=== PATIENT | female | born 1985 | race African-American/Black ===

== ENCOUNTER 2016-05-05 12:50 | Emergency (ER) | payer OTHER ==
[~2016-05-05] VITALS: Ht 175.3 cm; Wt 140.3 kg
[2016-05-05 13:01] VITALS: TEMP 36.4; Ht 175.3 cm; Wt 140.3 kg
[2016-05-05] MEDS ORDERED: SODIUM CHLORIDE 0.9% 1000ML 500 ML IV STA (13:25)
[2016-05-05] MEDS ORDERED: SODIUM CHLORIDE 0.9% 1000ML 1,000 ML IV STA (13:25)
[2016-05-05] MEDS ORDERED: KETOROLAC TROMETHAMINE 30 MG/ML VIAL IV STA (13:25)
--- NOTE | 2016-05-05 13:35 | EMERGENCY ROOM VISIT NOTE ---
History Report prepared by Rafael: Heather Roberts Under the Supervision of: Dr. Juarez Varela M.D. First contact with patient: 13:20 Chief Complaint: RESPIRATORY PROBLEMS Stated Complaint: RIGHT UPPER BACK PAIN, RESPIRATORY PAIN Nursing Triage Summary: having pain in right upper back when taking a deep breath. feeling slightly sob. no other symptoms at this time. pt is a smoker History of Present Illness The patient is a 31 year old female who presents to the Emergency Room with complaints of persistent pain in the right side of her chest for the past 2 days. She rates the pain as a 7/10 and reports the pain is worsened by deep inspiration. She was unable to sleep last night because of her discomfort. She denies any history of asthma or lung problems but notes she is a current smoker. She has tried taking Ibuprofen, but it has not provided much relief. She complains of feeling mildly short of breath as well. The patient denies any personal or family history of PE's or DVT's. She denies any recent travel, fall or injuries. Her boyfriend notes she has been working out recently and may have pulled a muscle. The patient also denies noticing any rashes or abnormalities to her skin. Source of History: patient Onset: 2 days FUR BLOWER Position: chest (right side of chest) Symptom Intensity: Timing: other (persistent) Modifying Factors (Worsening): breathing (deep inspiration) Modifying Factors (Relieving): ibuprofen Associated Symptoms: + SOB, No rash Review of Systems See HPI for pertinent positives & negatives. A total of 10 systems reviewed and were otherwise negative. Past Medical & Surgical Medical Problems: (1) Umbilical hernia Surgical Problems: (1) S/P section Family History Diabetes mellitus Hypertension Social History Smoking Status: Current Every Day Smoker Alcohol Use: none Drug Use: none Marital Status: in relationship Housing Status: lives with family Occupation Status: employed Current/Historical Medications Scheduled Multivitamin (Multivitamin), 1 TAB PO DAILY Scheduled PRN Oxycodone Ir (Roxicodone Ir), 1-2 TAB PO Q4H PRN for Pain Allergies Coded Allergies: Ioversol (Verified Allergy, Intermediate, HIVES, 05/05/16) Quinolones (Verified Allergy, Unknown, 05/05/16) Sulfa Drugs (Verified Allergy, Unknown, 05/05/16) Sulfamethoxazole (Verified Allergy, Unknown, 05/05/16) Trimethoprim (Verified Allergy, Unknown, 05/05/16) Metronidazole (Verified Adverse Reaction, Mild, GI UPSET, 05/05/16) GI UPSET Physical Exam Vital Signs Date Time Temp Pulse Resp B/P Pulse Ox O2 Delivery O2 Flow Rate FiO2 05/05/16 15:00 68 16 96/52 100 Room Air 05/05/16 14:23 66 05/05/16 13:01 36.4 83 18 123/82 99 Room Air Physical Exam GENERAL: Patient is in no acute distress. HEENT: No acute trauma, normocephalic atraumatic, mucous membranes moist, no nasal congestion, no scleral icterus. NECK: No stridor, no adenopathy, no meningismus, trachea is midline. LUNGS: Clear to auscultation bilaterally, no wheeze, no rhonchi, breath sounds equal. HEART: Without murmurs gallops or rubs, regular rate and rhythm. CHEST: Tender along the right lateral mid chest wall, no rash. ABDOMEN: Soft, nontender, bowel sounds positive, no hernias, no peritonitis. EXTREMITIES: No cyanosis or edema, full range of motion of all the joints without pain or difficulty, no signs for acute trauma. NEUROLOGIC: Oriented x 3, no acute motor or sensory deficits, no focal weakness. SKIN: No rash, no jaundice, no diaphoresis. Medical Decision & Procedures ER Provider Diagnostic Interpretation: This X-Ray was reviewed and interpreted by myself and the radiologist. CHEST ONE VIEW PORTABLE IMPRESSION: No active disease in the chest. Electronically signed by: Jericho Louise M.D. 05/05/2016 1:35 PM Laboratory Results 05/05/16 14:00 05/05/16 14:00 Test 05/05/16 14:00 05/05/16 14:10 Red Blood Count 4.44 M/uL (4.2-5.4) Mean Corpuscular Volume 89.2 fL (80-100) Mean Corpuscular Hemoglobin 29.5 pg (25-34) Mean Corpuscular Hemoglobin Concent 33.1 g/dl (32-36) RDW Standard Deviation 44.1 fL (36.4-46.3) RDW Coefficient of Variation 13.5 % (11.5-14.5) Mean Platelet Volume 10.2 fL (7.4-10.4) Anion Gap 8.0 mmol/L (3-11) Est Creatinine Clear Calc Drug Dose 183.5 ml/min Estimated GFR () 134.5 Estimated GFR (Non- 116.1 BUN/Creatinine Ratio 19.0 (10-20) Calcium Level 8.8 mg/dl (8.5-10.1) Total Bilirubin 0.8 mg/dl (0.2-1) Aspartate Amino Transf (AST/SGOT) 8 U/L (15-37) Alanine Aminotransferase (ALT/SGPT) 17 U/L (12-78) Alkaline Phosphatase 50 U/L (45-117) Total Protein 6.5 gm/dl (6.4-8.2) Albumin 3.2 gm/dl (3.4-5.0) Globulin 3.3 gm/dl (2.5-4.0) Albumin/Globulin Ratio 1.0 (0.9-2) Bedside D-Dimer 405 ng/mlFEU (0-450) Bedside Troponin I 0.000 ng/ml (0-0.045) Laboratory results reviewed by me. Medications Administered Medications (Trade) Dose Ordered Sig/[facility] Route Start Time Stop Time Status Last Admin Dose Admin Sodium Chloride 500 ml @ 999 mls/hr Q31M STAT IV 05/05/16 13:25 05/05/16 13:55 DC 05/05/16 14:09 999 MLS/HR Sodium Chloride (Nss 1000ml) 1,000 ml @ 200 mls/hr Q5H STAT IV 05/05/16 13:25 05/05/16 15:47 DC 05/05/16 13:25 200 MLS/HR Ketorolac Tromethamine (Toradol Inj) 30 mg NOW STAT IV 05/05/16 13:25 05/05/16 13:27 DC 05/05/16 14:09 30 MG ECG Indication: chest pain Rate (beats per minute): 61 Rhythm: normal sinus (normal sinus rhythm) Findings: no acute ischemic change, no ectopy ED Course 1321: The patient was evaluated in room C5. A complete history and physical exam was performed. 1325: Toradol 30 mg IV, NSS 1000 ml @ 200 mls/hr IV, NSS 500 ml @ 999 mls/hr IV. 1500: I reevaluated the patient. She is feeling much better. I discussed her results and discharge instructions and she verbalized complete understanding and agreement. Medical Decision The differential diagnoses considered include: Musculoskeletal pain, aortic dissection, PE, PA, pneumothorax, pneumonia and liver disease. There is no leukocytosis or concerning anemia. No significant electrolyte abnormality, kidney failure or hepatitis. Chest x-ray shows no pneumonia, mediastinal widening or pneumothorax. EKG shows a sinus rhythm, no acute ischemia. Cardiac enzyme testing 1 is not suggestive of acute cardiac injury. D-dimer testing is negative. With a negative d-dimer and my low suspicion for PE, I will stop the workup for this diagnosis. The patient presents with right lateral chest pain. The pain is reproducible and likely musculoskeletal. Patient's workup is benign. She is being discharged home. [place] Drug Monitoring Program Search Results: no issues identified Impression Primary Impression: Right-sided chest pain Scribe Attestation The scribe's documentation has been prepared under my direction and personally reviewed by me in its entirety. I confirm that the note above accurately reflects all work, treatment, procedures, and medical decision making performed by me. Departure Information Dispostion Home / Self-Care Prescriptions Oxycodone Ir (Roxicodone Ir) 5 Mg Tab 1-2 TAB PO Q4H Y for Pain, #10 TAB Prov: Juarez Varela M.D. 05/05/16 Referrals Vitaly Dangelo M.D. (PCP) Patient Instructions My [facility] Additional Instructions heat will help rest avoid exercise until feeling better motrin 600 mg 3x per day for 5 days oxy ir 1 tab every 4 hours for severe pain as needed return if worsening or have fever
--- NOTE | 2016-05-05 13:38 | DIAGNOSTIC IMAGING REPORT ---
CHEST ONE VIEW PORTABLE CLINICAL HISTORY: Atypical chest pain COMPARISON STUDY: 01/25/2016 FINDINGS: The cardiac and mediastinal contours are normal. There is no evidence of focal pulmonary consolidation. There is no evidence of failure. No pleural effusions are visualized.[ IMPRESSION: No active disease in the chest. Electronically signed by: Jericho Louise M.D. 05/05/2016 1:35 PM Dictated Date/Time: 05/05/2016 1:35 PM
[2016-05-05 14:23] LABS: HEMATOCRIT 39.6 % (37-47); MEAN CELL VOLUME 89.2 fL (80-100); MEAN CORPUSCULAR HEMOGLOBIN 29.5 pg (25-34); MEAN CORPUSCULAR HGB CONC 33.1 g/dl (32-36); MEAN PLATELET VOLUME 10.2 fL (7.4-10.4); PLATELET COUNT 252 K/uL (130-400); RED BLOOD COUNT 4.44 M/uL (4.2-5.4); WHITE BLOOD COUNT 7.08 K/uL (4.8-10.8)
[2016-05-05] MEDS ORDERED: MULT-506 PO (14:40)
[2016-05-05 14:42] LABS: CALCIUM 8.8 mg/dl (8.5-10.1); CREATININE 0.66 mg/dl (0.60-1.20); POTASSIUM 3.8 mmol/L (3.5-5.1)
[2016-05-05 15:00] VITALS: BP 96/52; PULSE 68; O2SAT 100
[2016-05-05] MEDS ORDERED: OXYC1TAB3 PO (15:13)
== END 2016-05-05 15:24 | disposition home or self-care (01) ==
LOC: C.EDB 12:52 → C.EDC 15:24
DX: R07.89 Other chest pain (principal); F17.200 Nicotine dependence, unspecified, uncomplicated

== ENCOUNTER → 2016-05-25 | Outpatient (CLI) | payer OTHER ==
[~2016-05-25] MED LIST: BUSP1TAB46 PO; CYAN500T PO; ERGO500037 PO; MULT-506 PO; OXYC1TAB3 PO; PROM25TA9 PO
[2016-05-28 21:14] LABS: CHLAMYDIA TRACH RNA*** NOT DETECTED (NOT DETECTED); GC (NEIS GONORRHOEAE)RNA** NOT DETECTED (NOT DETECTED)
== END | disposition home or self-care (01) ==
LOC: C.LABSPEC 14:31
PROVIDERS: ATTEND Obstetrics & Gynecology
DX: Z11.3 Encounter for screening for infections with a predominantly sexual mode of transmission (principal)

== ENCOUNTER → 2016-06-15 | Outpatient (CLI) | payer OTHER ==
--- NOTE | 2016-06-15 13:16 | DIAGNOSTIC IMAGING REPORT ---
CT SCAN OF THE ABDOMEN AND PELVIS WITHOUT CONTRAST CLINICAL HISTORY: Recurrent ventral hernia. Abdominal pain. COMPARISON STUDY: 01/01/2015 TECHNIQUE: CT scan of the abdomen and pelvis was performed from the lung bases to the proximal femurs. Images are reviewed in the axial, sagittal, and coronal planes. IV contrast was not administered for this examination. CT DOSE: 1429.66 mGycm FINDINGS: Lower chest: The heart is normal in size and configuration, without pericardial effusion. The lung bases and pleural spaces are clear. Liver: The unenhanced liver is normal in size, contour, and attenuation. There is no intrahepatic biliary ductal dilatation. Gallbladder: Contracted Spleen: Normal in size and attenuation. Pancreas: Unremarkable. Adrenal glands: Unremarkable. Kidneys: The unenhanced kidneys are normal in size without hydronephrosis. There is no contour deforming renal mass lesion. No renal calculi are identified. Bowel: There are no transition zones indicate bowel obstruction. There is no acute diverticulitis. There are no findings to indicate acute appendicitis. Peritoneum: There is no intraperitoneal free air or abdominal ascites. There is a right-sided paramidline fat-containing ventral hernia. The neck measures 16 mm. The hernia sac measures 39 x 35 x 53 mm. Vasculature: The abdominal aorta is normal in course and caliber. Adenopathy: None. Pelvic viscera: The bladder, and pelvic viscera are unremarkable. Skeletal structures: No destructive osseous lesions are seen. IMPRESSION: 1. No evidence of bowel obstruction. No evidence of free air 2. No acute inflammatory changes. No evidence of acute appendicitis. No evidence of acute diverticulitis 3. Right-sided fat-containing paramidline ventral hernia Electronically signed by: Jericho Louise M.D. 06/15/2016 1:14 PM Dictated Date/Time: 06/15/2016 1:10 PM
== END | disposition home or self-care (01) ==
LOC: C.CTS 12:40
PROVIDERS: ATTEND Surgery
DX: K43.2 Incisional hernia without obstruction or gangrene (principal)

== ENCOUNTER 2016-06-24 12:09 | Emergency (ER) | payer OTHER ==
[~2016-06-24] VITALS: Ht 175.3 cm; Wt 136.5 kg
[~2016-06-24 12:09] MED LIST changes: -BUSP1TAB46 PO; -CYAN500T PO; -ERGO500037 PO; -PROM25TA9 PO
[2016-06-24 12:12] VITALS: TEMP 36.4; Ht 175.3 cm; Wt 136.5 kg
[2016-06-24 13:35] LABS: URINE APPEARANCE CLEAR (CLEAR); URINE BILIRUBIN NEG (NEG); URINE COLOR YELLOW; URINE NITRITE NEG (NEG); URINE SPECIFIC GRAVITY 1.023 (1.000-1.030); UROBILINOGEN NEG (NEG)
[2016-06-24 13:47] LABS: MANUAL MICROSCOPIC REQUIRED? NO; REVIEW REQ? NO
--- NOTE | 2016-06-24 14:59 | DIAGNOSTIC IMAGING REPORT ---
ABDOMEN 2VIEW W/PA CHEST RTN CLINICAL HISTORY: abd pain nausea COMPARISON STUDY: 05/05/2016 FINDINGS: The soft tissues, psoas shadows, renal outlines and intestinal gas pattern appear normal. There is no evidence for bowel obstruction. There is no evidence for free intraperitoneal air. No abnormal abdominal calcifications are seen. A frontal view of the chest was performed and is unremarkable. IMPRESSION: Normal study. Electronically signed by: Anastacio Veloz M.D. 06/24/2016 2:58 PM Dictated Date/Time: 06/24/2016 2:58 PM
[2016-06-24] MEDS ORDERED: PROM25TA9 PO (15:13)
[2016-06-24 15:29] VITALS: BP 121/59; PULSE 71; O2SAT 100
--- NOTE | 2016-06-24 16:46 | EMERGENCY ROOM VISIT NOTE ---
History First contact with patient: 13:00 Chief Complaint: ILLNESS Stated Complaint: POSSIBLE FOOD POISONING History of Present Illness The patient is a 31 year old -[place] female who presents to the Emergency Room with complaints of nausea and mild stomach discomfort since last evening. Patient states she and her family were out having dinner last night. She had a chicken sandwich with a yogurt sauce. No one else had a chicken sandwich. She developed some nausea last night. It has persisted through today. She denies any vomiting or diarrhea. No fevers, chills, or sweats. She does have mild diffuse abdominal discomfort. Nothing specific. She also notes occasional burping and reflux type symptoms. She states her reflux smells like sulfur. She had this once before. No back pain, shortness of breath, or chest pain. No one else has similar symptoms. No treatment yet. She denies any urinary urgency or dysuria. She states there may be some frequency. No previous abdominal surgeries other than C-sections. Review of Systems REVIEW OF SYSTEM: HEENT: No dizziness, visual problems, hearing loss, or tinnitus. There is no difficulty swallowing and no oral lesions are present. PULMONARY: No cough, shortness of breath, sputum production or hemoptysis. CARDIOVASCULAR: No chest pain, palpitations, shortness of breath or peripheral edema. GASTROINTESTINAL: No diarrhea, constipation, vomiting, or abdominal pain. GENITOURINARY: No dysuria, frequency, urgency or nocturia. NEUROLOGIC: No weakness, muscle tenderness, epilepsy or history of neurological problems. MUSCULOSKELETAL: No history of joint tenderness/swelling. No history of arthritis or arthralgias. SKIN: No rashes or lesions. PSYCHIATRIC: No history of depression or mental illness. ENDOCRINE: No history of diabetes, thyroid disorders, or abnormal hair growth. Past Medical/Surgical History Medical Problems: (1) Umbilical hernia Surgical Problems: (1) S/P section Family History Diabetes mellitus Hypertension Social History Smoking Status: Current Every Day Smoker Smokeless Tobacco Use: No Alcohol Use: none Drug Use: none Marital Status: in relationship Housing Status: lives with family Occupation Status: employed Current/Historical Medications Scheduled Multivitamin (Multivitamin), 1 TAB PO DAILY Scheduled PRN Promethazine Hcl (Phenergan), 25 MG PO Q6H PRN for Nausea Allergies Coded Allergies: Ioversol (Verified Allergy, Intermediate, HIVES, 05/05/16) Quinolones (Verified Allergy, Unknown, 05/05/16) Sulfa Drugs (Verified Allergy, Unknown, 05/05/16) Sulfamethoxazole (Verified Allergy, Unknown, 05/05/16) Trimethoprim (Verified Allergy, Unknown, 05/05/16) Metronidazole (Verified Adverse Reaction, Mild, GI UPSET, 05/05/16) GI UPSET Physical Exam Vital Signs Date Time Temp Pulse Resp B/P Pulse Ox O2 Delivery O2 Flow Rate FiO2 06/24/16 15:29 71 18 121/59 100 Room Air 06/24/16 14:17 74 20 166/107 97 Room Air 06/24/16 12:12 36.4 93 20 112/67 97 Room Air Pain Rating (0-10): 4.0 Physical Exam Gen.: Well-developed, well-nourished, moderately obese -[place] female, in no acute distress. Laying on a bed. Alert and oriented. Skin:Warm and dry with good turgor. No rashes or lesions. No ecchymosis or erythema. The patient is not diaphoretic. No abrasions. Heart: Heart RRR. No MGR. Peripheral pulses are 2+. Lungs: Lungs are clear to auscultation. No crackles rhonchi or wheezing. Good air movement. The patient is able to take a deep breath. Abdomen: Abdomen was inspected, auscultated, and palpated. Obese. Bowel sounds present x 4. Soft, suprapubic discomfort to palpation. No tenderness anywhere else on the abdomen. No hepato-splenomegaly. No masses noted. No rebound, negative Gross sign. No pain over McBurney's point. No CVA tenderness. Musculoskeletal: Gross motor function of the upper and lower extremities is intact and unremarkable. Medical Decision & Procedures ER Provider Diagnostic Interpretation: (X-ray series obtained today was read by radiology as unremarkable. Significant stool is visible. Normal bowel gas pattern. Laboratory Results Test 06/24/16 13:24 Urine Color YELLOW Urine Appearance CLEAR (CLEAR) Urine pH 7.0 (4.5-7.5) Urine Specific [place] 1.023 (1.000-1.030) Urine Protein NEG (NEG) Urine Glucose (UA) NEG (NEG) Urine Ketones NEG (NEG) Urine Occult Blood NEG (NEG) Urine Nitrite NEG (NEG) Urine Bilirubin NEG (NEG) Urine Urobilinogen NEG (NEG) Urine Leukocyte Esterase NEG (NEG) Urine Test NEG (NEG) Urine is negative. UA is unremarkable. ED Course Patient was educated regarding today's findings. Conservative care measures were discussed. Acute abdominal x-ray series was obtained today. UA and urine were also obtained. These were unremarkable. Symptoms may be related to her significant stool load. I will have her use MiraLAX or prune juice to start moving her bowels. She states she did move them yesterday and it was normal, but this was before the chicken sandwich. Prescription was provided for Phenergan 25 mg to use every 6 hours as needed for nausea. She is afebrile and has no focal abdominal discomfort. I do not think further imaging studies are warranted at this time. Obviously return to the ED if symptoms should change, or follow-up with her PCP. Start a bland diet. Advance as tolerated. Tylenol or Motrin every 6 hours as needed for mild discomfort. Maintain hydration. Her significant other is also aware. Medical Decision Possibility of the urgency, UTI, kidney stone, bowel obstruction, constipation, diverticulitis, appendicitis, cholecystitis, ovarian cyst, PID, food poisoning, and viral gastroenteritis were considered. Impression Primary Impression: Constipation Additional Impression: Nausea Departure Information Dispostion Home / Self-Care Prescriptions Promethazine Hcl (Phenergan) 25 Mg Tab 25 MG PO Q6H Y for Nausea, #10 TAB Prov: Torrey Mcdermott,P.A. 06/24/16 Forms WORK / SCHOOL INSTRUCTIONS, HOME CARE DOCUMENTATION FORM, IMPORTANT VISIT INFORMATION Patient Instructions My [facility] Additional Instructions Follow-up with your PCP if symptoms persist or worsen Return to the ED for any other concerns Start MiraLAX or prune juice to help with bowel motility Phenergan 1 tablet every 6 hours as needed for nausea Maintain hydration [place] diet-advance as tolerated Problem Qualifiers Primary Impression: Constipation Constipation type: unspecified constipation type Qualified Codes: K59.00 - Constipation, unspecified
== END 2016-06-24 15:31 | disposition home or self-care (01) ==
LOC: C.EDB 12:09 → C.EDA 15:31
DX: K59.00 Constipation, unspecified (principal); R11.0 Nausea; Z98.891 History of uterine scar from previous surgery; Z83.3 Family history of diabetes mellitus; Z82.49 Family history of ischemic heart disease and other diseases of the circulatory system; F17.200 Nicotine dependence, unspecified, uncomplicated

== ENCOUNTER 2016-10-02 11:21 | Emergency (ER) | payer OTHER ==
[~2016-10-02] VITALS: Ht 175.3 cm; Wt 149.0 kg
[~2016-10-02 11:21] MED LIST changes: -OXYC1TAB3 PO; +PROM25TA9 PO
[2016-10-02 11:23] VITALS: BP 135/79; PULSE 83; TEMP 36.6; O2SAT 97; Ht 175.3 cm; Wt 149.0 kg
--- NOTE | 2016-10-02 11:56 | DIAGNOSTIC IMAGING REPORT ---
LEFT HAND MIN 3 VIEWS ROUTINE CLINICAL HISTORY: L index finger pain pain COMPARISON: None. DISCUSSION: The bones and joint spaces appear intact. There is no evidence of fracture, dislocation or bony disease. There is no evidence for soft tissue swelling. IMPRESSION: Negative study. Electronically signed by: Anastacio Veloz M.D. 10/02/2016 11:55 AM Dictated Date/Time: 10/02/2016 11:54 AM
--- NOTE | 2016-10-02 12:25 | EMERGENCY ROOM VISIT NOTE ---
ED Visit Note First contact with patient: 11:26 Chief Complaint: Left index finger pain. History of Present Illness: Ms. Holman is a 31-year-old female who ambulates into the ED accompanied by her son complaining of left index finger pain over the PIP joint. Patient reports the pain started approximately one week ago and she does not remember any precipitating trauma. She has had no previous significant injuries or surgeries to this area. She describes the pain as a mild constant pressure sensation that becomes sharp with palpation and flexion of the PIP joint. She has minimal relief when she is not flexing the joint. She rates her discomfort 5/10. The pain is nonradiating. She has not taken any medications for pain prior to arrival at the hospital. She denies any associated symptoms including fevers, chills, sweats, skin eruptions, skin color changes, other hand pain, other finger pain, hand/finger weakness/numbness /tingling. Review of Systems: As noted above in history of present illness. Past Medical History: Umbilical hernia, status post section. Current Medications: Multivitamins. Allergies to Medications: Ioversol, metronidazole, quinolones, sulfa, Bactrim. Social History: Patient is currently employed; she feels safe in her home environment; she admits to tobacco use and denies alcohol use. Physical Examination: Vital Signs: Date Time Temp Pulse Resp B/P (MAP) Pulse Ox O2 Delivery O2 Flow Rate FiO2 10/02/16 11:23 36.6 83 20 135/79 97 Room Air GENERAL: 31-year-old female in minimal distress due to pain, nontoxic-appearing , afebrile and hemodynamically stable. NEUROLOGICAL: Awake, alert and oriented to person, place and time. Answering questions appropriately and following commands. Normal gait. Good hand eye coordination. No focal motor or sensory deficits. SKIN: Warm, dry and pink. No soft tissue eruptions or trauma noted. LEFT HAND: No gross bony deformity. Left Middle Finger: No gross bony deformity. Moderate tenderness over the PIP joint without bony deformity or crepitus. There is also mild swelling in this area without erythema. She does have full range of motion in flexion and extension of the MCP, PIP and DIP joint. No tendon tenderness. No laxity of the ligamentous structures of the PIP joint. Throughout the finger the skin was warm and pink and capillary refill is brisk. She is able to distinguish light sensations through all dermatomes of the finger. ED Course: Patient is assessed as noted above. Left Hand X-Rays: Were read by myself and the radiologist and shows no acute fractures or dislocations. Patient was offered pain medications and refused. As I was writing the patient's discharge instructions and was about to go review her x-ray reports she left the ED. Clinical Impression: Left index finger pain Disposition: Patient left without being reevaluated and treated. Plan: Discharge instructions were written in case the patient would return for reevaluation, but none was given to the patient verbally or written.
== END 2016-10-02 12:10 | disposition home or self-care (01) ==
LOC: C.EDB 11:23 → C.EDD 12:10
DX: M79.642 Pain in left hand (principal); F17.200 Nicotine dependence, unspecified, uncomplicated; Z98.890 Other specified postprocedural states; Z88.2 Allergy status to sulfonamides; Z88.8 Allergy status to other drugs, medicaments and biological substances

== ENCOUNTER → 2016-11-16 | Outpatient (CLI) | payer OTHER ==
[~2016-11-16] MED LIST changes: +BUSP1TAB46 PO; +CYAN500T PO; +ERGO500037 PO; -PROM25TA9 PO
[2016-11-16 12:21] LABS: BASO % 0.2 %; BASO ABS # 0.01 K/uL (0-0.2); COMPLETE YES; EOS % 2.9 %; HEMATOCRIT 42.1 % (37-47); LYMPH % 40.5 %; LYMPH ABS # 1.93 K/uL (1.2-3.4); MEAN CELL VOLUME 89.6 fL (80-100); MEAN CORPUSCULAR HEMOGLOBIN 28.9 pg (25-34); MEAN CORPUSCULAR HGB CONC 32.3 g/dl (32-36); MEAN PLATELET VOLUME 10.6 fL (7.4-10.4); MONO % 6.9 %; NEUT % 49.5 %; PLATELET COUNT 265 K/uL (130-400); WHITE BLOOD COUNT 4.77 K/uL (4.8-10.8)
[2016-11-16 13:07] LABS: ALT/SGPT 19 U/L (12-78); BLOOD UREA NITROGEN 11 mg/dl (7-18); CALCIUM 8.5 mg/dl (8.5-10.1); CARBON DIOXIDE 24 mmol/L (21-32); CHLORIDE 108 mmol/L (98-107); CHOLESTEROL 110 mg/dl (0-200); CREATININE 0.61 mg/dl (0.60-1.20); GLUCOSE 76 mg/dl (70-99); POTASSIUM 4.1 mmol/L (3.5-5.1); SODIUM 140 mmol/L (136-145)
[2016-11-16 13:17] LABS: ALB/GLOB RATIO 0.8 (0.9-2); ALKALINE PHOSPHATASE 51 U/L (45-117); AST/SGOT 11 U/L (15-37); FERRITIN 29.6 ng/ml (8.0-388.0); HDL CHOLESTEROL 56 mg/dl; LDL CHOLESTEROL CALCULATED 39 mg/dl; THYROID STIMULATING HORMONE 0.578 uIu/ml (0.300-4.500); TRIGLYCERIDES 77 mg/dl (0-150); VERY LOW DENSITY LIPOPROT CALC 15 mg/dl
== END | disposition home or self-care (01) ==
LOC: C.LAB 10:28
PROVIDERS: ATTEND Internal Medicine
DX: Z11.3 Encounter for screening for infections with a predominantly sexual mode of transmission (principal); R42 Dizziness and giddiness; G62.9 Polyneuropathy, unspecified; R63.8 Other symptoms and signs concerning food and fluid intake

== ENCOUNTER → 2016-11-22 | Outpatient (CLI) | payer OTHER ==
[2016-11-25 14:27] LABS: CHLAMYDIA TRACH RNA*** NOT DETECTED (NOT DETECTED); GC (NEIS GONORRHOEAE)RNA** NOT DETECTED (NOT DETECTED)
== END | disposition home or self-care (01) ==
LOC: C.LABSPEC 13:29
PROVIDERS: ATTEND Physician Assistant
DX: N94.89 Other specified conditions associated with female genital organs and menstrual cycle (principal); Z11.3 Encounter for screening for infections with a predominantly sexual mode of transmission

== ENCOUNTER 2016-11-25 18:37 | Emergency (ER) | payer OTHER ==
[~2016-11-25] VITALS: Ht 175.3 cm; Wt 147.9 kg
[~2016-11-25 18:37] MED LIST changes: -BUSP1TAB46 PO; -CYAN500T PO; -ERGO500037 PO
[2016-11-25 18:42] VITALS: TEMP 36.8; Ht 175.3 cm; Wt 147.9 kg
[2016-11-25] MEDS ORDERED: BUSP1TAB46 PO (19:25)
[2016-11-25] MEDS ORDERED: CYAN500T PO (19:25)
[2016-11-25] MEDS ORDERED: ERGO500037 PO (19:25)
[2016-11-25 19:28] LABS: BASO % 0.3 %; BASO ABS # 0.02 K/uL (0-0.2); COMPLETE YES; EOS % 3.1 %; HEMATOCRIT 39.2 % (37-47); IG% 0.3 %; LYMPH % 36.6 %; MEAN CELL VOLUME 90.3 fL (80-100); MEAN CORPUSCULAR HEMOGLOBIN 29.5 pg (25-34); MEAN CORPUSCULAR HGB CONC 32.7 g/dl (32-36); MEAN PLATELET VOLUME 10.1 fL (7.4-10.4); NEUT % 54.7 %; PLATELET COUNT 241 K/uL (130-400); RED BLOOD COUNT 4.34 M/uL (4.2-5.4); WHITE BLOOD COUNT 7.37 K/uL (4.8-10.8)
[2016-11-25 19:32] LABS: URINE APPEARANCE CLEAR (CLEAR); URINE BILIRUBIN NEG (NEG); URINE COLOR YELLOW; URINE EPITHELIAL CELL AUTO >30 /lpf (0-5); URINE NITRITE NEG (NEG); URINE PH 6.5 (4.5-7.5); URINE SPECIFIC GRAVITY 1.021 (1.000-1.030); UROBILINOGEN NEG (NEG); ZZUR CULT IF INDIC CLEAN CATCH NO
[2016-11-25 19:33] LABS: MANUAL MICROSCOPIC REQUIRED? NO; REVIEW REQ? NO
[2016-11-25 20:06] LABS: BUN/CREATININE RATIO 15.1 (10-20); CALCIUM 8.7 mg/dl (8.5-10.1); CREATININE 0.75 mg/dl (0.60-1.20)
[2016-11-25 20:13] LABS: POTASSIUM 4.1 mmol/L (3.5-5.1)
[2016-11-25 20:41] VITALS: BP 123/53; PULSE 91; O2SAT 98
--- NOTE | 2016-11-25 20:51 | EMERGENCY ROOM VISIT NOTE ---
History Report prepared by Rafael: Jeaneth Lao Under the Supervision of: Dr. Adan Bustillo D.O. First contact with patient: 18:57 Chief Complaint: ABDOMINAL PAIN Stated Complaint: FEELING OFF BALANCED,RT ABD PAIN History of Present Illness The patient is a 31 year old female who presents to the Emergency Room with complaints of constant abdominal pain starting 1 week ago. The patient describes her pain as a pulsating sensation in her right lower abdomen which is like a heartbeat. She has also been feeling off balance and like she might fall over when she stands up. She reports nausea. She denies any vomiting or diarrhea. She denies any chance of as she has had a tubal ligation. Her last menstrual period was 2 weeks ago. She has an umbilical hernia, but that pain is different from her current pain. She has a history of C section and hernia repair surgery. Source of History: patient Onset: 1 week ago Position: abdomen (RLQ) Quality: other (pulsating) Timing: constant Associated Symptoms: + nausea, No vomiting, No diarrhea Note: Pt reports feeling off balance. Review of Systems See HPI for pertinent positives & negatives. A total of 10 systems reviewed and were otherwise negative. Past Medical & Surgical Medical Problems: (1) Umbilical hernia Surgical Problems: (1) S/P section Family History Diabetes mellitus Hypertension Social History Smoking Status: Current Every Day Smoker Alcohol Use: none Drug Use: none Marital Status: in relationship Housing Status: lives with family Occupation Status: employed Current/Historical Medications Scheduled Buspirone Hcl (Buspirone Hcl), 7.5 MG PO BID Cyanocobalamin (Vitamin B-12), Unknown Dose PO DAILY Ergocalciferol (Vitamin D 08185 Unit), 50,000 UNIT PO WK Multivitamin (Multivitamin), 1 TAB PO DAILY Allergies Coded Allergies: Ioversol (Verified Allergy, Intermediate, HIVES, 11/25/16) Quinolones (Verified Allergy, Unknown, 11/25/16) Sulfa Drugs (Verified Allergy, Unknown, 11/25/16) Sulfamethoxazole (Verified Allergy, Unknown, 11/25/16) Trimethoprim (Verified Allergy, Unknown, 11/25/16) Metronidazole (Verified Adverse Reaction, Mild, GI UPSET, 11/25/16) GI UPSET Physical Exam Vital Signs Date Time Temp Pulse Resp B/P (MAP) Pulse Ox O2 Delivery O2 Flow Rate FiO2 11/25/16 20:41 91 16 123/53 98 Room Air 11/25/16 18:42 36.8 86 20 126/67 100 Room Air Physical Exam CONSTITUTIONAL/VITAL SIGNS: Reviewed / noted above. GENERAL: Non-toxic in appearance. INTEGUMENTARY: Warm, dry, and [place]. HEAD: Normocephalic. EYES: without scleral icterus or trauma. ENT/OROPHARYNX: clear and moist. LYMPHADENOPATHY/NECK: Is supple without lymphadenopathy or meningismus. RESPIRATORY: Lungs clear and equal. CARDIOVASCULAR: Regular rate and rhythm. GI/ABDOMEN: Soft and nontender. No organomegaly or pulsatile mass. No rebound or guarding. Normal bowel sounds. EXTREMITIES: Warm and well perfused. BACK: No CVA tenderness. NEUROLOGICAL: Intact without focal deficits. PSYCHIATRIC: normal affect. MUSCULOSKELETAL: Normally developed with good muscle tone. Medical Decision & Procedures Laboratory Results 11/25/16 19:15 Red Blood Count 4.34, Mean Corpuscular Volume 90.3, Mean Corpuscular Hemoglobin 29.5, Mean Corpuscular Hemoglobin Concent 32.7, Mean Platelet Volume 10.1, Neutrophils (%) (Auto) 54.7, Lymphocytes (%) (Auto) 36.6, Monocytes (%) (Auto) 5.0, Eosinophils (%) (Auto) 3.1, Basophils (%) (Auto) 0.3, Neutrophils # (Auto) 4.03, Lymphocytes # (Auto) 2.70, Monocytes # (Auto) 0.37, Eosinophils # (Auto) 0.23, Basophils # (Auto) 0.02 11/25/16 19:15 Test 11/25/16 19:15 White Blood Count 7.37 K/uL (4.8-10.8) Red Blood Count 4.34 M/uL (4.2-5.4) Hemoglobin 12.8 g/dL (12.0-16.0) Hematocrit 39.2 % (37-47) Mean Corpuscular Volume 90.3 fL (80-100) Mean Corpuscular Hemoglobin 29.5 pg (25-34) Mean Corpuscular Hemoglobin Concent 32.7 g/dl (32-36) Platelet Count 241 K/uL (130-400) Mean Platelet Volume 10.1 fL (7.4-10.4) Neutrophils (%) (Auto) 54.7 % Lymphocytes (%) (Auto) 36.6 % Monocytes (%) (Auto) 5.0 % Eosinophils (%) (Auto) 3.1 % Basophils (%) (Auto) 0.3 % Neutrophils # (Auto) 4.03 K/uL (1.4-6.5) Lymphocytes # (Auto) 2.70 K/uL (1.2-3.4) Monocytes # (Auto) 0.37 K/uL (0.11-0.59) Eosinophils # (Auto) 0.23 K/uL (0-0.5) Basophils # (Auto) 0.02 K/uL (0-0.2) RDW Standard Deviation 44.9 fL (36.4-46.3) RDW Coefficient of Variation 13.5 % (11.5-14.5) Immature Granulocyte % (Auto) 0.3 % Immature Granulocyte # (Auto) 0.02 K/uL (0.00-0.02) Urine Color YELLOW Urine Appearance CLEAR (CLEAR) Urine pH 6.5 (4.5-7.5) Urine Specific [place] 1.021 (1.000-1.030) Urine Protein NEG (NEG) Urine Glucose (UA) NEG (NEG) Urine Ketones NEG (NEG) Urine Occult Blood NEG (NEG) Urine Nitrite NEG (NEG) Urine Bilirubin NEG (NEG) Urine Urobilinogen NEG (NEG) Urine Leukocyte Esterase NEG (NEG) Urine WBC (Auto) 0 /hpf (0-5) Urine RBC (Auto) 0-4 /hpf (0-4) Urine Hyaline Casts (Auto) 1-5 /lpf (0-5) Urine Epithelial Cells (Auto) >30 /lpf (0-5) Urine Bacteria (Auto) NEG (NEG) Urine Test NEG (NEG) Anion Gap 7.0 mmol/L (3-11) Est Creatinine Clear Calc Drug Dose 166.6 ml/min Estimated GFR () 121.4 Estimated GFR (Non- 104.7 BUN/Creatinine Ratio 15.1 (10-20) Calcium Level 8.7 mg/dl (8.5-10.1) Total Bilirubin 0.5 mg/dl (0.2-1) Direct Bilirubin 0.2 mg/dl (0-0.2) Aspartate Amino Transf (AST/SGOT) 13 U/L (15-37) Alanine Aminotransferase (ALT/SGPT) 21 U/L (12-78) Alkaline Phosphatase 57 U/L (45-117) Total Protein 6.7 gm/dl (6.4-8.2) Albumin 3.1 gm/dl (3.4-5.0) Lipase 154 U/L (73-393) Laboratory results as stated above per my review. ED Course 1857: Previous medical records were reviewed. The patient was evaluated in room B3B. A complete history and physical examination was performed. 2044: On reevaluation, the patient is resting comfortably. I discussed the results and findings with the patient. She verbalized agreement of the treatment plan. She was discharged home. Medical Decision Differential considered: pancreatitis, hepatitis, or acute cholecystitis, AAA, UTI, pyelonephritis, kidney stones, appendicitis, diverticulitis, shingles, bowel obstruction mesenteric ischemia, intussusception,hernia, testicular torsion, ovarian torsion, ruptured ovarian cyst,ectopic , . This is a 31-year-old female who presents to the ED with a chief complaint of abdominal discomfort. The patient reports that she has had abdominal pain for months. She states that over the past week he has been more regular and feels like a heartbeat. This is mostly in the right lower abdomen. The patient states also that she has been feeling off balance for a long time. The patient reports history of umbilical hernia. Her vital signs are normal. Her physical exam was unremarkable. She is no abdominal tenderness on exam. She states that she has an ultrasound scheduled for Saturday. Blood work was normal including a CBC, chemistry panel, urinalysis and test. She is not . The patient had x-rays and ultrasound pending but the patient stated that she had to go and she cannot wait any longer. She will go to her ultrasound on Saturday. She was felt to be stable for discharge. Medication Reconcilliation Current Medication List: was personally reviewed by me Blood Pressure Screening Patient's blood pressure: Normal blood pressure Blood pressure disposition: Did not require urgent referral Impression Primary Impression: Abdominal pain Scribe Attestation The scribe's documentation has been prepared under my direction and personally reviewed by me in its entirety. I confirm that the note above accurately reflects all work, treatment, procedures, and medical decision making performed by me. Departure Information Dispostion Home / Self-Care Referrals Vitaly Dangelo M.D. (PCP) Patient Instructions My [facility] Additional Instructions Follow-up with your doctor for further care and evaluation in 1-5 days. Return to the emergency department for worsening or new symptoms or any concerns. You have been examined and treated today on an emergency basis only. This is not a substitute for, or an effort to provide, complete comprehensive medical care. It is impossible to recognize and treat all injuries or illnesses in a single emergency department visit. It is therefore important that you follow up closely with your doctor. Call as soon as possible for an appointment.
--- NOTE | 2016-11-25 21:12 | DIAGNOSTIC IMAGING REPORT ---
CHEST AND ABDOMEN 2 VIEWS HISTORY: Generalized abdominal pain. COMPARISON: Chest and abdominal series 06/24/2016. FINDINGS: The lungs are clear. The cardiomediastinal silhouette is within normal limits. There is no pneumoperitoneum or pneumatosis. The bowel gas pattern is unremarkable. No evidence for bowel obstruction. No pathologic calcifications. IMPRESSION: No acute cardiopulmonary process. No evidence for bowel obstruction. Electronically signed by: Rodri Amin M.D. 11/25/2016 9:11 PM Dictated Date/Time: 11/25/2016 9:09 PM
== END 2016-11-25 21:04 | disposition home or self-care (01) ==
LOC: C.EDB 18:38
DX: R10.31 Right lower quadrant pain (principal); K42.9 Umbilical hernia without obstruction or gangrene; F17.210 Nicotine dependence, cigarettes, uncomplicated; Z83.3 Family history of diabetes mellitus; Z82.49 Family history of ischemic heart disease and other diseases of the circulatory system; Z79.899 Other long term (current) drug therapy

== ENCOUNTER → 2016-12-11 | Outpatient (CLI) | payer OTHER ==
[~2016-12-11] MED LIST changes: +BUSP1TAB46 PO; +CYAN500T PO; +ERGO500037 PO
== END | disposition home or self-care (01) ==
LOC: C.LABSPEC 17:04
PROVIDERS: ATTEND Podiatrist Foot & Ankle Surgery
DX: B35.1 Tinea unguium (principal)

== ENCOUNTER 2017-01-16 22:55 | Emergency (ER) | payer OTHER ==
[~2017-01-16] VITALS: Ht 175.3 cm; Wt 149.3 kg
[2017-01-16 23:02] VITALS: TEMP 37.1; Ht 175.3 cm; Wt 149.3 kg
[2017-01-16] MEDS ORDERED: IBUPROFEN 600 MG TAB PO STA (23:14)
[2017-01-16] MEDS ORDERED: ACETAMINOPHEN 500 MG TAB PO STA (23:14)
[2017-01-17] MEDS ORDERED: NORCO 5/325MG HOME PACK PO ONE
[2017-01-17 00:06] VITALS: BP 128/70; PULSE 78; O2SAT 98
--- NOTE | 2017-01-17 04:54 | EMERGENCY ROOM VISIT NOTE ---
History First contact with patient: 23:07 Chief Complaint: RIB PAIN Stated Complaint: RT RIB EXTREME PAIN, LIGHT HEADED History of Present Illness The patient is a 32 year old female who presents to the Emergency Room with complaints of right-sided rib/chest wall pain after striking herself moving a television about 12 hours ago. The patient states that the pain has been persistent and slowly worsening. It is exacerbated by twisting, palpation, and deep breathing. The patient does not have fever or chills. She has only had minimal improvement with Advil and Tylenol. She rates her discomfort an 8/10. Review of Systems More than 6 systems were reviewed and otherwise negative with the exception of history of present illness. Past Medical/Surgical History Medical Problems: (1) Umbilical hernia Surgical Problems: (1) S/P section Family History Diabetes mellitus Hypertension Social History Smoking Status: Current Every Day Smoker Alcohol Use: none Drug Use: none Marital Status: in relationship Housing Status: lives with family Occupation Status: employed Current/Historical Medications Scheduled Buspirone Hcl (Buspirone Hcl), 7.5 MG PO BID Cyanocobalamin (Vitamin B-12), Unknown Dose PO DAILY Ergocalciferol (Vitamin D 70154 Unit), 50,000 UNIT PO WK Multivitamin (Multivitamin), 1 TAB PO DAILY Physical Exam Vital Signs Date Time Temp Pulse Resp B/P (MAP) Pulse Ox O2 Delivery O2 Flow Rate FiO2 01/17/17 00:06 78 18 128/70 98 01/16/17 23:02 37.1 87 20 126/74 96 Room Air Physical Exam VITALS: Vitals are noted on the nurse's note and reviewed by myself. Vital signs stable. GENERAL: Well-developed, well-nourished, black female, who is in no acute distress and resting comfortably. Patient is cooperative with the examination. HEART: Regular rate and rhythm with systolic murmur LUNGS: Clear to auscultation bilaterally without wheezes, rales or rhonchi. No retractions or accessory muscle use. CHEST WALL: Tenderness appreciated over the right side anterior chest wall just below the right breast, roughly in the sixth and seventh rib distribution. There is no flail chest or crepitus. No significant deformity noted. Medical Decision & Procedures Medications Administered Medications (Trade) Dose Ordered Sig/Yessi Route Start Time Stop Time Status Last Admin Dose Admin Acetaminophen (Tylenol Tab) 1,000 mg NOW STAT PO 01/16/17 23:14 01/16/17 23:15 DC 01/16/17 23:20 1,000 MG Ibuprofen (Motrin Tab) 600 mg NOW STAT PO 01/16/17 23:14 01/16/17 23:15 DC 01/16/17 23:19 600 MG ED Course Physical exam and history were performed. Nursing notes, EMR, and Medication List were personally reviewed. Patient appears to have right-sided rib pain after injuring herself with a television earlier today. X-ray was obtained and does not show evidence of acute fracture or pneumothorax. Radiology is pending at the time. The patient conservatively with [id number] analgesics. She is to follow up with primary care physician. Care management. She was invited to return with any new, worsening, or concerning symptoms. The chart was completed utilizing [employer] Speech Voice Recognition Software. Grammatical errors, random word insertions, pronoun errors, and incomplete sentences are an occasional consequence of this system due to software limitations, ambient noise, and hardware issues. Any formal questions or concerns about the content, text, or information contained within the body of this dictation should be directly addressed to the provider for clarification. . Medical Decision Differential diagnosis includes, but is not limited to: Sprain, strain, fracture , dislocation, sensation, contusion, pneumothorax and others Blood Pressure Screening Patient's blood pressure: Normal blood pressure Impression Primary Impression: Rib pain on right side Departure Information Dispostion Home / Self-Care Condition GOOD Forms HOME CARE DOCUMENTATION FORM, IMPORTANT VISIT INFORMATION Patient Instructions My [facility] Additional Instructions You were seen and evaluated today on an emergency basis only. This is not a substitute for, or an effort to provide, complete comprehensive medical care. It is not possible to recognize and treat all injuries or illnesses in a single emergency department visit. For this reason it is recommended that you followup with your primary care physician in the next week for recheck of your condition. For baseline pain relief you may alternate ibuprofen and acetaminophen every 4 hours for pain control. Take 600 mg ibuprofen (Advil) and then 4 hours later take 1000 mg acetaminophen (Tylenol). Do not take more than 3000 mg acetaminophen in a single day. [place] (hydrocodone/acetaminophen) 5/325 mg (homepack) every 6 hours as needed for worsening breakthrough pain. Do not drink or drive on [place]. This medication will likely make you tired. Do not take [place] and Tylenol at the same time as both contain acetaminophen. [place] may cause constipation. You may wish to take an [id number] stool softener like Colace if this occurs. You are welcome to return to the emergency department anytime with new, worsening, or concerning symptoms.
--- NOTE | 2017-01-17 07:31 | DIAGNOSTIC IMAGING REPORT ---
R RIBS UNILATERAL WITH PA CHEST HISTORY: 32 years-old Female Right side rib injury acute right-sided rib injury with associated pain. COMPARISON: Portable chest radiograph 05/05/2016 TECHNIQUE: Frontal view of the chest with 4 views of the right ribs FINDINGS: Cardiomediastinal and hilar silhouettes are within normal limits. No pneumothorax, pleural effusion or focal airspace consolidation. No overt pulmonary edema. No acute displaced rib fracture identified. Bones appear intact. Mild subcortical cystic changes involve the distal right clavicle. IMPRESSION: 1. No acute cardiopulmonary process. 2. No acute fracture or pneumothorax identified. The above report was generated using voice recognition software. It may contain grammatical, syntax or spelling errors. Electronically signed by: Candelario Irving M.D. 01/17/2017 6:40 AM Dictated Date/Time: 01/17/2017 6:38 AM
== END 2017-01-17 00:04 | disposition home or self-care (01) ==
LOC: C.EDB 22:56 → C.EDA 01-17 00:04
DX: S29.9XXA Unspecified injury of thorax, initial encounter (principal); R07.89 Other chest pain; W22.8XXA Striking against or struck by other objects, initial encounter

== ENCOUNTER 2017-02-08 00:12 | Emergency (ER) | payer OTHER ==
[~2017-02-08] VITALS: Ht 175.3 cm; Wt 150.0 kg
[2017-02-08 00:15] VITALS: TEMP 36.5; Ht 175.3 cm; Wt 150.0 kg
[2017-02-08] MEDS ORDERED: ACETAMINOPHEN 500 MG TAB PO STA (00:34)
[2017-02-08] MEDS ORDERED: IBUPROFEN 600 MG TAB PO STA (00:34)
[2017-02-08] MEDS ORDERED: SODIUM CHLORIDE 0.9% 1000ML 1,000 ML IV STA (00:34)
--- NOTE | 2017-02-08 00:38 | EMERGENCY ROOM VISIT NOTE ---
History Report prepared by Rafael: Madelyn Brooks Under the Supervision of: Dr. Maksim Butterfield M.D. First contact with patient: 00:18 Chief Complaint: COUGH Stated Complaint: PAIN IN CHEST AND THROAT,WEAK History of Present Illness The patient is a 32 year old black female with a past medical history of sections who presents to the ED with a cc of chest pain beginning today. Positive cough, Negative nausea, vomiting. Source of History: patient Onset: today Position: chest Quality: other (pain ) Associated Symptoms: + cough, No nausea, No vomiting Review of Systems See HPI for pertinent positives and negatives. A total of ten systems were reviewed and were otherwise negative. Past Medical & Surgical Medical Problems: (1) Umbilical hernia Surgical Problems: (1) S/P section Family History Diabetes mellitus Hypertension Social History Smoking Status: Current Every Day Smoker Alcohol Use: none Drug Use: none Marital Status: in relationship Housing Status: lives with family Occupation Status: employed Current/Historical Medications Scheduled Benzonatate (Tessalon Perles), 100 MG PO TID Ergocalciferol (Vitamin D 83147 Unit), 50,000 UNIT PO WK Allergies Coded Allergies: Ioversol (Verified Allergy, Intermediate, HIVES, 02/08/17) Quinolones (Verified Allergy, Unknown, 02/08/17) Sulfa Drugs (Verified Allergy, Unknown, 02/08/17) Sulfamethoxazole (Verified Allergy, Unknown, 02/08/17) Trimethoprim (Verified Allergy, Unknown, 02/08/17) Metronidazole (Verified Adverse Reaction, Mild, GI UPSET, 02/08/17) GI UPSET Physical Exam Vital Signs Date Time Temp Pulse Resp B/P (MAP) Pulse Ox O2 Delivery O2 Flow Rate FiO2 02/08/17 02:23 79 18 129/81 98 02/08/17 00:37 Room Air 02/08/17 00:15 36.5 87 16 139/82 96 Room Air Physical Exam GENERAL: Awake, alert, well-appearing, NAD, non-toxic appearing, obese HENT: Normocephalic, atraumatic. EYES: Normal conjunctiva. Sclera non-icteric. NECK: Supple. No nuchal rigidity. FROM. No stridor. RESPIRATORY: CTAB, no rhonchi, wheezing, crackles CARDIAC: RRR, no MRG ABDOMEN: Soft, NTND, BS+ MSK: No chest wall TTP, no LE edema, no erythema, no calor. No calf pain. NEURO: GCS 15, CN 2-12 intact, moves all 4s on command SKIN: No rash or jaundice noted. Medical Decision & Procedures ER Provider Diagnostic Interpretation: Chest X-Ray: Trachea is midline. Costovertebral angles are fairly well blunted, likely secondary to body habitus. No evidence of pneumothorax or pleural effusion. No cardiomegaly. Bony elements appear intact. Laboratory Results 02/08/17 00:49 Red Blood Count 4.24, Mean Corpuscular Volume 90.1, Mean Corpuscular Hemoglobin 29.7, Mean Corpuscular Hemoglobin Concent 33.0, Mean Platelet Volume 10.2, Neutrophils (%) (Auto) 47.9, Lymphocytes (%) (Auto) 37.4, Monocytes (%) (Auto) 8.5, Eosinophils (%) (Auto) 5.7, Basophils (%) (Auto) 0.3, Neutrophils # (Auto) 2.95, Lymphocytes # (Auto) 2.30, Monocytes # (Auto) 0.52, Eosinophils # (Auto) 0.35, Basophils # (Auto) 0.02 02/08/17 00:49 Test 02/08/17 00:49 White Blood Count 6.15 K/uL (4.8-10.8) Red Blood Count 4.24 M/uL (4.2-5.4) Hemoglobin 12.6 g/dL (12.0-16.0) Hematocrit 38.2 % (37-47) Mean Corpuscular Volume 90.1 fL (80-100) Mean Corpuscular Hemoglobin 29.7 pg (25-34) Mean Corpuscular Hemoglobin Concent 33.0 g/dl (32-36) Platelet Count 247 K/uL (130-400) Mean Platelet Volume 10.2 fL (7.4-10.4) Neutrophils (%) (Auto) 47.9 % Lymphocytes (%) (Auto) 37.4 % Monocytes (%) (Auto) 8.5 % Eosinophils (%) (Auto) 5.7 % Basophils (%) (Auto) 0.3 % Neutrophils # (Auto) 2.95 K/uL (1.4-6.5) Lymphocytes # (Auto) 2.30 K/uL (1.2-3.4) Monocytes # (Auto) 0.52 K/uL (0.11-0.59) Eosinophils # (Auto) 0.35 K/uL (0-0.5) Basophils # (Auto) 0.02 K/uL (0-0.2) RDW Standard Deviation 44.6 fL (36.4-46.3) RDW Coefficient of Variation 13.6 % (11.5-14.5) Immature Granulocyte % (Auto) 0.2 % Immature Granulocyte # (Auto) 0.01 K/uL (0.00-0.02) Toxic Vacuolation 1+ Anion Gap 8.0 mmol/L (3-11) Est Creatinine Clear Calc Drug Dose 208.0 ml/min Estimated GFR () 137.8 Estimated GFR (Non- 118.9 BUN/Creatinine Ratio 17.2 (10-20) Calcium Level 8.2 mg/dl (8.5-10.1) Laboratory results reviewed by me Medications Administered Medications (Trade) Dose Ordered Sig/Yessi Route Start Time Stop Time Status Last Admin Dose Admin Acetaminophen (Tylenol Tab) 1,000 mg NOW STAT PO 02/08/17 00:34 02/08/17 00:36 DC 02/08/17 00:55 1,000 MG Ibuprofen (Motrin Tab) 600 mg ONE STAT PO 02/08/17 00:34 02/08/17 00:36 DC 02/08/17 00:54 600 MG Benzonatate (Tessalon Perles Cap) 100 mg NOW ONCE PO 02/08/17 00:45 02/08/17 00:46 DC 02/08/17 00:54 100 MG Sodium Chloride 1,000 ml @ 999 mls/hr Q1H1M STAT IV 02/08/17 00:34 02/08/17 01:34 DC 02/08/17 00:34 999 MLS/HR ECG Indication: chest pain Rate (beats per minute): 78 Rhythm: normal sinus Findings: other (normal intervals, normal axis, motion artifact in and VII, t-wave flatterning in lead 3 and V3 but not in continguous leads, no STS changes or T-wave inversions ) ED Course 0020: The patient was evaluated in room A12B. A complete history and physical exam was performed. 0145: I updated the patient on her results. 0225: I reevaluated the patient. Discussed results and discharge instructions: She verbalized understanding and agreement. The patient is ready for discharge. Medical Decision The patient is a 32 year old black female with a past medical history of sections who presents to the ED with a cc of chest pain beginning today. Differential diagnosis: Etiologies such as cardiac ischemia, aortic dissection, pulmonary embolism, pneumonia, pneumothorax, musculoskeletal, infections, pericarditis, myocarditis , esophageal rupture, gastrointestinal, as well as others were entertained. Patient was seen and evaluated at the bedside. Patient does have some sick children at home with some similar symptoms. Patient said some mild cough and sore throat. Patient's cough is nonproductive and without any blood. Patient denies any recent car or plane travel. No prior history of DVT or PE. Patient does smoke. Patient was counseled for smoking cessation. Patient did have a chest x-ray that appeared clear without any pleural effusion or pneumothorax or consolidation. Patient's white blood cell count was within normal limits. Less likely pneumonia. Patient may have a URI or bronchitis given her smoking history. She is PRC negative thus less likely PE. Patient's EKG was nonischemic and her history and physical exam is more consistent with an infectious etiology versus ACS less likely. Patient was given strict follow-up , discharge, and return precautions. Patient agreed with plan of care patient was safely discharged home. Medication Reconcilliation Current Medication List: was personally reviewed by me Blood Pressure Screening Patient's blood pressure: Normal blood pressure Impression Primary Impression: URI (upper respiratory infection) Additional Impressions: Cough Encounter for smoking cessation counseling Scribe Attestation The scribe's documentation has been prepared under my direction and personally reviewed by me in its entirety. I confirm that the note above accurately reflects all work, treatment, procedures, and medical decision making performed by me. Departure Information Dispostion Home / Self-Care Prescriptions Benzonatate (TESSALON PERLES) 100 Mg Cap 100 MG PO TID for 7 Days, #21 CAP Prov: Maksim Butterfield M.D. 02/08/17 Referrals Vitaly Dangelo M.D. (PCP) Forms HOME CARE DOCUMENTATION FORM, IMPORTANT VISIT INFORMATION Patient Instructions ED Upper Resp Infec No Abx Tx, My [facility] Additional Instructions Please return to the emergency department if you have worsening or recurrent symptoms not amenable to at-home treatment. Please call for a follow-up appointment with her primary care physician. Please take your medications as prescribed. If you have other concerns and/or complaints please feel free to also call your primary care physician's office or return the ED for further evaluation, management, and treatment. You may take 600 mg Ibuprofen every 6 hours as needed for pain with food for no more than 2 consecutive days. You may take tylenol 1000mg every 6 hours as needed for pain. You may take motrin and tylenol separately or at the same time. Try tea w/ lemon and honey. You can try cepacol or tessalon perrles. 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 You have been examined and treated today on an emergency basis only. This is not a substitute for, or an effort to provide, complete comprehensive medical care. It is impossible to recognize and treat all injuries or illnesses in a single emergency department visit. It is therefore important that you follow up closely with [facility]. Call as soon as possible for an appointment. Thank you for your time and consideration. I look forward to speaking with you again soon. Please don't hesitate to call us if you have any questions. Problem Qualifiers Primary Impression: URI (upper respiratory infection) URI type: unspecified URI Qualified Codes: J06.9 - Acute upper respiratory infection, unspecified
[2017-02-08] MEDS ORDERED: BENZONATATE 100MG CAP PO ONE (00:45)
[2017-02-08 01:36] LABS: BUN/CREATININE RATIO 17.2 (10-20); CALCIUM 8.2 mg/dl (8.5-10.1); CREATININE 0.6 mg/dl (0.60-1.20)
[2017-02-08 01:41] LABS: POTASSIUM 3.9 mmol/L (3.5-5.1)
[2017-02-08 01:43] LABS: HEMATOCRIT 38.2 % (37-47); MEAN CELL VOLUME 90.1 fL (80-100); MEAN CORPUSCULAR HEMOGLOBIN 29.7 pg (25-34); MEAN PLATELET VOLUME 10.2 fL (7.4-10.4); PLATELET COUNT 247 K/uL (130-400); RED BLOOD COUNT 4.24 M/uL (4.2-5.4); WHITE BLOOD COUNT 6.15 K/uL (4.8-10.8)
[2017-02-08 01:50] LABS: BASO % 0.3 %; BASO ABS # 0.02 K/uL (0-0.2); COMPLETE YES; EOS % 5.7 %; IG% 0.2 %; LYMPH % 37.4 %; MONO % 8.5 %; NEUT % 47.9 %; VACUOLIZATION 1+
[2017-02-08] MEDS ORDERED: BENZ100C18 PO (02:07)
[2017-02-08 02:23] VITALS: BP 129/81; PULSE 79; O2SAT 98
--- NOTE | 2017-02-08 07:36 | DIAGNOSTIC IMAGING REPORT ---
CHEST ONE VIEW PORTABLE HISTORY: 32 years-old Female chest pain acute atypical chest pain with cough and sore throat COMPARISON: Acute abdominal series radiographs 11/25/2016, chest and rib series radiographs 01/16/2017 TECHNIQUE: Portable upright AP view of the chest FINDINGS: Cardiomediastinal and hilar silhouettes are within normal limits. There is no pneumothorax, pleural effusion, focal airspace consolidation or overt pulmonary edema. The bones of the chest are grossly intact. IMPRESSION: No acute cardiopulmonary process. The above report was generated using voice recognition software. It may contain grammatical, syntax or spelling errors. Electronically signed by: Candelario Irving M.D. 02/08/2017 7:35 AM Dictated Date/Time: 02/08/2017 7:34 AM
[2017-02-08] MEDS ORDERED: MULTTAB58 PO (17:04)
== END 2017-02-08 02:24 | disposition home or self-care (01) ==
LOC: C.EDB 00:13 → C.EDA 02:24
DX: J06.9 Acute upper respiratory infection, unspecified (principal); R05 Cough; F17.200 Nicotine dependence, unspecified, uncomplicated; Z83.3 Family history of diabetes mellitus; Z82.49 Family history of ischemic heart disease and other diseases of the circulatory system

== ENCOUNTER 2017-02-08 15:24 | Emergency (ER) | payer OTHER ==
[~2017-02-08] VITALS: Ht 175.3 cm; Wt 151.2 kg
[~2017-02-08 15:24] MED LIST changes: +BENZ100C18 PO
[2017-02-08 15:44] VITALS: TEMP 36.6; Ht 175.3 cm; Wt 151.2 kg
--- NOTE | 2017-02-08 16:51 | EMERGENCY ROOM VISIT NOTE ---
History Report prepared by Rafael: Vinod Valle Under the Supervision of: Dr. Adan Bustillo D.O. First contact with patient: 16:25 Chief Complaint: CHEST PAIN Stated Complaint: WEAK,DIZZY,CHEST PAIN Nursing Triage Summary: C/o upper chest pain radiating into neck. Seen in ED last night for the same. Report symtoms are worsening. Pt also reports cold symptoms. Congestion, runny nose, chills ongoing for the past several days. took both Ibuprofen and Tylenol today History of Present Illness The patient is a 32 year old female who presents to the Emergency Room with complaints of worsening chest pain beginning this morning. The patient states that she came into the emergency department yesterday for her chest pain symptoms but was discharged home. She notes that since going home yesterday, her symptoms have been worsening. Today she had some pain in her ankles. Source of History: patient Onset: this morning Position: chest Timing: worsening Associated Symptoms: + chills Note: she complains of throat pain, dizziness, and right ankle pain Review of Systems See HPI for pertinent positives & negatives. A total of 10 systems reviewed and were otherwise negative. Past Medical & Surgical Medical Problems: (1) Umbilical hernia Surgical Problems: (1) S/P section Family History Diabetes mellitus Hypertension Social History Smoking Status: Current Every Day Smoker Alcohol Use: none Drug Use: none Marital Status: in relationship Housing Status: lives with family Occupation Status: employed Current/Historical Medications Scheduled Benzonatate (Tessalon Perles), 100 MG PO TID Ergocalciferol (Vitamin D 55137 Unit), 50,000 UNIT PO WK Allergies Coded Allergies: Ioversol (Verified Allergy, Intermediate, HIVES, 02/08/17) Quinolones (Verified Allergy, Unknown, 02/08/17) Sulfa Drugs (Verified Allergy, Unknown, 02/08/17) Sulfamethoxazole (Verified Allergy, Unknown, 02/08/17) Trimethoprim (Verified Allergy, Unknown, 02/08/17) Metronidazole (Verified Adverse Reaction, Mild, GI UPSET, 02/08/17) GI UPSET Physical Exam Vital Signs Date Time Temp Pulse Resp B/P (MAP) Pulse Ox O2 Delivery O2 Flow Rate FiO2 02/08/17 15:47 98 Room Air 02/08/17 15:44 36.6 80 20 137/84 97 Room Air Physical Exam CONSTITUTIONAL/VITAL SIGNS: Reviewed / noted above. GENERAL: Non-toxic in appearance. INTEGUMENTARY: Warm, dry, and [place]. HEAD: Normocephalic. EYES: without scleral icterus or trauma. ENT/OROPHARYNX: clear and moist. There does appear to be a small aphthous ulcer on the patient's uvula. There is no evidence of airway swelling or other issues. LYMPHADENOPATHY/NECK: Is supple without lymphadenopathy or meningismus. RESPIRATORY: Lungs clear and equal. CARDIOVASCULAR: Regular rate and rhythm. GI/ABDOMEN: Soft and nontender. No organomegaly or pulsatile mass. No rebound or guarding. Normal bowel sounds. EXTREMITIES: Warm and well perfused. BACK: No CVA tenderness. NEUROLOGICAL: Intact without focal deficits. PSYCHIATRIC: normal affect. MUSCULOSKELETAL: Normally developed with good muscle tone. TRIAGE NURSING DOCUMENTATION REVIEWED. Medical Decision & Procedures ED Course 1632: Previous medical records were reviewed. The patient was evaluated in room B11. A complete history and physical examination was performed. Medical Decision the differential that was considered includes acute myocardial infarction, acute coronary syndrome, myocarditis, pericarditis, pericardial effusions / tamponad, esophageal perforation, thoracic aortic dissection, pulmonary embolism , pneumonia, pneumothorax, pancreatitis, shingles, acute cholecystitis, perforated abdominal viscus. This is a 32-year-old female who presents to the ED for the same symptoms that she had yesterday. She also stated that her ankles were bothering her a little bit today and she had a slight sore throat. She states that she has been on her feet all day today. The patient denies any other significant symptoms. No cinnamon changes since yesterday. She did have an evaluation yesterday in the emergency department including a chest x-ray and blood work. The patient's physical exam today is normal. Her vital signs are normal. There is no calf tenderness. Lungs are clear. She is in no distress. She appears comfortable. I spoke to her about repeating the tests from yesterday. The patient declined this. She states that she will just wait out her symptoms at home. I told her to anticipate improvement in about a week. Impression Primary Impression: Sore throat (viral) Additional Impression: Substernal chest pain Scribe Attestation The scribe's documentation has been prepared under my direction and personally reviewed by me in its entirety. I confirm that the note above accurately reflects all work, treatment, procedures, and medical decision making performed by me. Departure Information Dispostion Home / Self-Care Referrals Vitaly Dangelo M.D. (PCP) Patient Instructions [facility] Additional Instructions Follow-up with your doctor for further care and evaluation in 1-2 days. Return to the emergency department for worsening or new symptoms or any concerns. You have been examined and treated today on an emergency basis only. This is not a substitute for, or an effort to provide, complete comprehensive medical care. It is impossible to recognize and treat all injuries or illnesses in a single emergency department visit. It is therefore important that you follow up closely with your doctor. Call as soon as possible for an appointment. Problem Qualifiers
[2017-02-08 17:02] VITALS: BP 132/81; PULSE 76; O2SAT 96
[2017-02-08] MEDS ORDERED: MULTTAB58 PO (17:04)
== END 2017-02-08 17:03 | disposition home or self-care (01) ==
LOC: C.EDB 15:25
DX: J02.9 Acute pharyngitis, unspecified (principal); R07.2 Precordial pain; K42.9 Umbilical hernia without obstruction or gangrene; F17.200 Nicotine dependence, unspecified, uncomplicated; Z83.3 Family history of diabetes mellitus; Z82.49 Family history of ischemic heart disease and other diseases of the circulatory system

== ENCOUNTER → 2017-04-04 | Outpatient (CLI) | payer OTHER ==
[~2017-04-04] MED LIST changes: -BENZ100C18 PO; -BUSP1TAB46 PO; -CYAN500T PO; -ERGO500037 PO; -MULT-506 PO; +MULTTAB58 PO
== END | disposition home or self-care (01) ==
LOC: C.PAPS 11:19
PROVIDERS: ATTEND Physician Assistant
DX: Z12.4 Encounter for screening for malignant neoplasm of cervix (principal)

== ENCOUNTER → 2017-04-04 | Outpatient (CLI) | payer OTHER ==
[2017-04-06 02:56] LABS: CHLAMYDIA TRACH RNA*** NOT DETECTED (NOT DETECTED); GC (NEIS GONORRHOEAE)RNA** NOT DETECTED (NOT DETECTED); TRICHOMONAS VAGINALIS RNA** NOT DETECTED (NOT DETECTED)
== END | disposition home or self-care (01) ==
LOC: C.LABSPEC 11:00
PROVIDERS: ATTEND Physician Assistant
DX: N89.8 Other specified noninflammatory disorders of vagina (principal); Z11.3 Encounter for screening for infections with a predominantly sexual mode of transmission

== ENCOUNTER → 2017-08-15 | Outpatient (CLI) | payer OTHER | END | disposition home or self-care (01) | LOC: C.LAB 09:01 | PROVIDERS: ATTEND Nurse Practitioner Adult Health | DX: R00.2 Palpitations (principal); E55.9 Vitamin D deficiency, unspecified; E07.9 Disorder of thyroid, unspecified; R42 Dizziness and giddiness ==

== ENCOUNTER → 2017-08-30 | Outpatient (CLI) | payer OTHER ==
--- NOTE | 2017-08-30 10:52 | DIAGNOSTIC IMAGING REPORT ---
VENOUS DOPPLER LWR EXT BILA HISTORY: Pain. Edema. R60.9 [id number] Left leg painPlease schedule early tomorrow m COMPARISON STUDY: None. FINDINGS: There is normal compressibility, flow, and augmentation within the bilateral lower extremity deep venous systems. IMPRESSION: No DVT within the right or left lower extremity. The above report was generated using voice recognition software. It may contain grammatical, syntax or spelling errors. Electronically signed by: Anastacio Veloz M.D. 08/30/2017 10:50 AM Dictated Date/Time: 08/30/2017 10:47 AM
== END | disposition home or self-care (01) ==
LOC: C.ULTRBC 10:06
PROVIDERS: ATTEND Nurse Practitioner Adult Health
DX: M79.605 Pain in left leg (principal); R60.9 Edema, unspecified

== ENCOUNTER → 2017-09-06 | Outpatient (CLI) | payer OTHER ==
[2017-09-06 13:17] LABS: ALKALINE PHOSPHATASE 63 U/L (45-117); ALT/SGPT 18 U/L (12-78); AST/SGOT 13 U/L (15-37); BLOOD UREA NITROGEN 8 mg/dl (7-18); CALCIUM 8.5 mg/dl (8.5-10.1); CARBON DIOXIDE 26 mmol/L (21-32); CREATININE 0.74 mg/dl (0.60-1.20); GLUCOSE 85 mg/dl (70-99); POTASSIUM 3.7 mmol/L (3.5-5.1); SODIUM 139 mmol/L (136-145)
== END | disposition home or self-care (01) ==
LOC: C.LAB 10:25
PROVIDERS: ATTEND Nurse Practitioner Adult Health
DX: E77.8 Other disorders of glycoprotein metabolism (principal); R60.9 Edema, unspecified

== ENCOUNTER 2017-11-15 12:16 | Emergency (ER) | payer OTHER ==
[~2017-11-15] VITALS: Ht 175.3 cm; Wt 161.2 kg
[2017-11-15 12:17] VITALS: TEMP 36.6; Ht 175.3 cm; Wt 161.2 kg
[2017-11-15] MEDS ORDERED: KETOROLAC TROMETHAMINE 30 MG/ML VIAL IV STA (13:31)
[2017-11-15] MEDS ORDERED: SODIUM CHLORIDE 0.9% 1000ML 1,000 ML IV STA (13:31)
--- NOTE | 2017-11-15 13:51 | EMERGENCY ROOM VISIT NOTE ---
ED Visit Note First contact with patient: 13:05 CHIEF COMPLAINT: Right upper quadrant/flank pain HISTORY OF PRESENTING ILLNESS: This is a 32-year-old female who presents to the emergency department with complaint of right upper quadrant and right flank pain for the past month. Patient states that she first started noticing some pain in the right upper abdomen after eating, and noticed that she would have to move her bowels almost immediately after eating. She denies any diarrhea, but did have some loose stools and more frequent bowel movements for the past month. Patient states that she went to her PCP for the pain a few days ago, and had an ultrasound done today as an outpatient. Patient states the nurse called her to tell her that her gallbladder was okay but she had fatty liver on the ultrasound and was told to come to the emergency department for further evaluation because of her pain. She has not tried any medications for the pain. She has not tried any ice or heat for the pain. She states the pain initially seemed to come and go, but now is constant, worse with movement, 6/ 10. She has had some associated nausea, but denies any vomiting. She denies bloody or black stools. She denies fevers or chills. She denies any chest pain , shortness of breath, cough, hemoptysis, pleuritic type pain, leg pain or swelling. She denies any recent immobilization, history of DVT, or exogenous estrogen use. REVIEW OF SYSTEMS: A complete 10 point review of systems was reviewed with the patient with pertinent positives and negatives as per history of present illness. All else were negative. PAST MEDICAL HISTORY: Reviewed in chart, see problem list below. SOCIAL HISTORY: Lives at home. She is a current everyday smoker ALLERGIES: Reviewed in chart, see below. PHYSICAL EXAM: CONSTITUTIONAL: Pleasant and cooperative. No acute distress. Mildly dehydrated , but otherwise well appearing and well nourished. HEENT: Normocephalic, atraumatic. Pupils equal, round and reactive to light, EOMI. TMs normal. Pharynx normal. Tacky mucous membranes. NECK: Supple, full active range of motion without discomfort. RESPIRATORY: Clear to auscultation bilaterally with no wheezing, crackles, rhonchi or stridor. Equal expansion bilaterally. CARDIOVASCULAR: Regular rate and rhythm with no murmurs, rubs or gallops. Normal peripheral perfusion. No edema. CHEST WALL: Tenderness to palpation of the right anterior lateral chest wall just above the right upper quadrant, no crepitus, no bruising or swelling noted. GASTROINTESTINAL: Tenderness to palpation in the right upper quadrant, no rebound tenderness or guarding. Abdomen is soft, nondistended, and obese. No palpable masses or HSM. Bowel sounds present in all quadrants. No CVA tenderness bilaterally. MUSCULOSKELETAL: Full range of motion of all joints without discomfort. INTEGUMENTARY: No rash or other significant dermatologic conditions noted. NEUROLOGIC: Alert and oriented X 4 with normal affect. Normal strength and sensation in all 4 extremities. No focal neurologic deficits noted. Normal speech. Normal gait observed. ED COURSE AND MEDICAL DECISION MAKING: CC: Patient presenting with complaint of Right upper quadrant abdominal/flank pain DIFFERENTIAL DIAGNOSIS: Includes, but not limited to costochondritis, musculoskeletal pain, cholecystitis, cholelithiasis, gastritis, peptic ulcer disease, pancreatitis, pneumonia, PE, among others. INTERPRETATION OF LABS: No leukocytosis, no anemia, normal platelets, no significant electrolyte abnormalities, normal renal function, normal liver enzymes. Urine dip and urine are negative per verbal communication with Lesley Cordoba RN. IMAGING: GALLBLADDER-ABD LIMITED HISTORY: 32 years-old Female R10.811 Right upper quadrant abdominal tenderness acute right upper quadrant abdominal pain and tenderness COMPARISON: CT abdomen and pelvis 06/15/2016 TECHNIQUE: Multiple real-time sonographic images of the abdominal right upper quadrant were obtained assessing grayscale appearance and color flow FINDINGS: Study is limited secondary to patient body habitus. There is slightly increased echogenicity of the liver which is otherwise unremarkable. No focal hepatic mass or intrahepatic biliary ductal dilation. Common bile duct is normal, 5 mm. The gallbladder is within normal limits without wall thickening or pericholecystic fluid. No shadowing cholelithiasis. The imaged right kidney and pancreas are unremarkable. IMPRESSION: 1. No cholelithiasis or sonographic evidence of acute cholecystitis. 2. No biliary ductal dilation. 3. Slightly increased echogenicity of the liver possibly reflects fatty infiltration. ----- CHEST 2 VIEWS ROUTINE CLINICAL HISTORY: right flank pain, r/o PNA dyspnea COMPARISON STUDY: 02/08/2017 FINDINGS: The bones soft tissues and hemidiaphragms are normal. The cardiomediastinal silhouette is normal. The lungs are clear. The pulmonary vasculature is normal. IMPRESSION: Negative chest. MEDICATION RECONCILIATION: I attest that I have personally reviewed the patient 's current medication list. INITIAL VITAL SIGNS REVIEW: I reviewed the patient's initial vital signs and interpret them as follows: T: Afebrile; BP: Normotensive; HR: Within normal limits; RR: Within normal limits; Pulse Ox: Within normal limits on room. Blood pressure screening: The patient was found to have normal blood pressure on screening and does not require follow-up for repeat blood pressure check. SUMMARY: Patient was evaluated at bedside, history and physical exam performed. Patient is alert and oriented, in no acute distress, resting calmly in stretcher. Patient does have tenderness to palpation of the right upper quadrant and along the base of the rib cage on the anterior lateral area. I did review the patient's chart, specifically her right upper quadrant ultrasound report, which shows no evidence of acute gallbladder disease. I do not suspect PE, and patient's PERC score is negative. Orders were placed at bedside for labs, UA and urine , IV fluids for hydration as a precaution, IV Toradol for pain, chest x-ray to rule out pneumonia. Patient discussed with Dr. Aaron, who agrees with my assessment and plan. Labs and imaging reviewed as above, no acute findings to explain patient's pain. No findings to support gallbladder disease at this time. Given the reproducible nature of the pain with palpation along the anterior and lateral chest wall, I do suspect the patient could have a musculoskeletal process such as costochondritis. Patient reassessed multiple times throughout ED stay, she has remained stable, her pain is improved after the Toradol, and she feels well for discharge. Patient was updated on all results and plan for discharge, she was encouraged to follow closely with her PCP. She was also provided with referral information for a GI provider if her symptoms persist. Patient was also given strict return precautions should her symptoms worsen, she verbalized understanding. Patient was discharged home in stable condition and ambulatory. (Agueda Kang CRNP) First contact with patient: 13:05 The patient was seen and examined with advanced care provider. I agree with the history, physical and findings. Discussed outpatient follow up retirement for ?fatty liver disease. Please see their note for disposition and details. (Juan Aaron M.D.) Problem List Medical Problems: (1) Umbilical hernia Status: Chronic Surgical Problems: (1) S/P section Status: Resolved (Juan Aaron M.D.) Current/Historical Medications Scheduled Multiple Vitamin (Multivitamin), 1 TAB PO DAILY Allergies Coded Allergies: Ioversol (Verified Allergy, Intermediate, HIVES, 02/08/17) Quinolones (Verified Allergy, Unknown, 02/08/17) Sulfa Drugs (Verified Allergy, Unknown, 02/08/17) Sulfamethoxazole (Verified Allergy, Unknown, 02/08/17) Trimethoprim (Verified Allergy, Unknown, 02/08/17) Metronidazole (Verified Adverse Reaction, Mild, GI UPSET, 02/08/17) GI UPSET Vital Signs Date Time Temp Pulse Resp B/P (MAP) Pulse Ox O2 Delivery O2 Flow Rate FiO2 11/15/17 16:32 68 18 113/76 96 11/15/17 14:41 72 18 113/76 97 Room Air 11/15/17 13:31 81 11/15/17 12:17 36.6 81 18 132/86 97 Room Air (Juan Aaron M.D.) Laboratory Results 11/15/17 14:12 Red Blood Count 4.60, Mean Corpuscular Volume 88.0, Mean Corpuscular Hemoglobin 28.7, Mean Corpuscular Hemoglobin Concent 32.6, Mean Platelet Volume 9.9, Neutrophils (%) (Auto) 71.0, Lymphocytes (%) (Auto) 22.1, Monocytes (%) (Auto) 5.1, Eosinophils (%) (Auto) 1.4, Basophils (%) (Auto) 0.1, Neutrophils # (Auto) 5.41, Lymphocytes # (Auto) 1.69, Monocytes # (Auto) 0.39, Eosinophils # (Auto) 0.11, Basophils # (Auto) 0.01 11/15/17 14:12 Test 11/15/17 14:12 White Blood Count 7.63 K/uL (4.8-10.8) Red Blood Count 4.60 M/uL (4.2-5.4) Hemoglobin 13.2 g/dL (12.0-16.0) Hematocrit 40.5 % (37-47) Mean Corpuscular Volume 88.0 fL (80-100) Mean Corpuscular Hemoglobin 28.7 pg (25-34) Mean Corpuscular Hemoglobin Concent 32.6 g/dl (32-36) Platelet Count 238 K/uL (130-400) Mean Platelet Volume 9.9 fL (7.4-10.4) Neutrophils (%) (Auto) 71.0 % Lymphocytes (%) (Auto) 22.1 % Monocytes (%) (Auto) 5.1 % Eosinophils (%) (Auto) 1.4 % Basophils (%) (Auto) 0.1 % Neutrophils # (Auto) 5.41 K/uL (1.4-6.5) Lymphocytes # (Auto) 1.69 K/uL (1.2-3.4) Monocytes # (Auto) 0.39 K/uL (0.11-0.59) Eosinophils # (Auto) 0.11 K/uL (0-0.5) Basophils # (Auto) 0.01 K/uL (0-0.2) RDW Standard Deviation 44.8 fL (36.4-46.3) RDW Coefficient of Variation 13.9 % (11.5-14.5) Immature Granulocyte % (Auto) 0.3 % Immature Granulocyte # (Auto) 0.02 K/uL (0.00-0.02) Anion Gap 5.0 mmol/L (3-11) Est Creatinine Clear Calc Drug Dose 200.6 ml/min Estimated GFR () 134.3 Estimated GFR (Non- 115.8 BUN/Creatinine Ratio 10.6 (10-20) Calcium Level 8.6 mg/dl (8.5-10.1) Total Bilirubin 0.6 mg/dl (0.2-1) Aspartate Amino Transf (AST/SGOT) 19 U/L (15-37) Alanine Aminotransferase (ALT/SGPT) 16 U/L (12-78) Alkaline Phosphatase 53 U/L (45-117) Total Protein 6.8 gm/dl (6.4-8.2) Albumin 3.2 gm/dl (3.4-5.0) Globulin 3.6 gm/dl (2.5-4.0) Albumin/Globulin Ratio 0.9 (0.9-2) Lipase 98 U/L (73-393) Chemistry Specimen Hemolysis (Juan Aaron M.D.) Medications Administered Medications (Trade) Dose Ordered Sig/Yessi Route Start Time Stop Time Status Last Admin Dose Admin Ketorolac Tromethamine (Toradol Inj) 15 mg NOW STAT IV 11/15/17 13:31 11/15/17 13:35 DC 11/15/17 13:31 15 MG Sodium Chloride 1,000 ml @ 999 mls/hr Q1H1M STAT IV 11/15/17 13:31 11/15/17 14:31 DC 11/15/17 13:31 999 MLS/HR (Juan Aaron M.D.) Departure Information Impression Primary Impression: Right upper quadrant abdominal pain Dispostion Home / Self-Care Condition GOOD Referrals Pro,Vitaly Tate M.D. (PCP) Galileo Aly D.O. Patient Instructions ED Abdominal Pain Gallstone Poss, ED Abdominal Pain Unkn Cause, [facility] Additional Instructions You have been treated in the Emergency Department for your abdominal pain. Laboratory results and imaging studies have ruled out any emergent causes for your symptoms which would warrant admission or surgery. For pain control, you can use the following [id number] medicines (if >12 yo): - Regular strength (325mg/tab) Tylenol (acetaminophen) 2 tabs every 4-6 hours as needed. Do not exceed 10 tablets in a 24 hour period. Avoid taking more than 3000 mg of Tylenol per day. This includes any other sources of acetaminophen you may take on a regular basis. - Regular strength (200 mg/tab) Advil (ibuprofen) 3 tabs every 6-8 hours as needed. Do not exceed a dose of 2400 mg per day. You may also use a heating pad to your right side for comfort. Drink plenty of fluids to stay well hydrated. Please follow-up with your primary care provider in the next few days for further management of your symptoms. There is no evidence of gallbladder disease on your ultrasound or blood work today, but she may need to have further testing done if your symptoms continue. These tests should be ordered by a x ray service engineer. You have been provided with referral information for x ray service engineer, Dr. Galileo Aly. Please call to set up an appointment for follow-up of your abdominal pain and possible fatty liver disease. Return to the emergency department for severe worsening abdominal or back pain, severe nausea/vomiting, vomiting blood, blood in your stool or urine, fevers > 101.5, severe dizziness or passing out, or any other concerns.
[2017-11-15 14:21] LABS: BASO % 0.1 %; BASO ABS # 0.01 K/uL (0-0.2); EOS % 1.4 %; EOS ABS # 0.11 K/uL (0-0.5); HEMATOCRIT 40.5 % (37-47); HEMOGLOBIN 13.2 g/dL (12.0-16.0); IG# 0.02 K/uL (0.00-0.02); LYMPH % 22.1 %; LYMPH ABS # 1.69 K/uL (1.2-3.4); MEAN CORPUSCULAR HEMOGLOBIN 28.7 pg (25-34); MEAN CORPUSCULAR HGB CONC 32.6 g/dl (32-36); MEAN PLATELET VOLUME 9.9 fL (7.4-10.4); MONO % 5.1 %; MONO ABS # 0.39 K/uL (0.11-0.59); NEUT ABS # 5.41 K/uL (1.4-6.5); PLATELET COUNT 238 K/uL (130-400); RED CELL DISTRIBUTION WIDTH CV 13.9 % (11.5-14.5); RED CELL DISTRIBUTION WIDTH SD 44.8 fL (36.4-46.3); WHITE BLOOD COUNT 7.63 K/uL (4.8-10.8)
--- NOTE | 2017-11-15 14:48 | DIAGNOSTIC IMAGING REPORT ---
CHEST 2 VIEWS ROUTINE CLINICAL HISTORY: right flank pain, r/o PNA dyspnea COMPARISON STUDY: 02/08/2017 FINDINGS: The bones soft tissues and hemidiaphragms are normal. The cardiomediastinal silhouette is normal. The lungs are clear. The pulmonary vasculature is normal. IMPRESSION: Negative chest. The above report was generated using voice recognition software. It may contain grammatical, syntax or spelling errors. Electronically signed by: Anastacio Veloz M.D. 11/15/2017 2:46 PM Dictated Date/Time: 11/15/2017 2:46 PM
[2017-11-15 14:57] LABS: ALBUMIN 3.2 gm/dl (3.4-5.0); CALCIUM 8.6 mg/dl (8.5-10.1); CREATININE 0.65 mg/dl (0.60-1.20); TOTAL PROTEIN 6.8 gm/dl (6.4-8.2)
[2017-11-15 16:32] VITALS: BP 113/76; PULSE 68; O2SAT 96
== END 2017-11-15 16:33 | disposition home or self-care (01) ==
LOC: C.EDB 12:16
DX: R10.11 Right upper quadrant pain (principal); F17.200 Nicotine dependence, unspecified, uncomplicated; Z88.8 Allergy status to other drugs, medicaments and biological substances

== ENCOUNTER → 2017-11-15 | Outpatient (CLI) | payer OTHER ==
--- NOTE | 2017-11-15 10:50 | DIAGNOSTIC IMAGING REPORT ---
GALLBLADDER-ABD LIMITED HISTORY: 32 years-old Female R10.811 Right upper quadrant abdominal tenderness acute right upper quadrant abdominal pain and tenderness COMPARISON: CT abdomen and pelvis 06/15/2016 TECHNIQUE: Multiple real-time sonographic images of the abdominal right upper quadrant were obtained assessing grayscale appearance and color flow FINDINGS: Study is limited secondary to patient body habitus. There is slightly increased echogenicity of the liver which is otherwise unremarkable. No focal hepatic mass or intrahepatic biliary ductal dilation. Common bile duct is normal, 5 mm. The gallbladder is within normal limits without wall thickening or pericholecystic fluid. No shadowing cholelithiasis. The imaged right kidney and pancreas are unremarkable. IMPRESSION: 1. No cholelithiasis or sonographic evidence of acute cholecystitis. 2. No biliary ductal dilation. 3. Slightly increased echogenicity of the liver possibly reflects fatty infiltration. The above report was generated using voice recognition software. It may contain grammatical, syntax or spelling errors. Electronically signed by: Candelario Irving M.D. 11/15/2017 10:49 AM Dictated Date/Time: 11/15/2017 10:47 AM
== END | disposition home or self-care (01) ==
LOC: C.ULTR 09:57
PROVIDERS: ATTEND Nurse Practitioner Adult Health
DX: R10.811 Right upper quadrant abdominal tenderness (principal)